=== PATIENT | male | born 1990 | race Two or more races ===

== ENCOUNTER 2020-04-12 13:04 | Emergency (ER) | payer OTHER ==
[~2020-04-12] VITALS: Ht 175.3 cm; Wt 75.0 kg
[2020-04-12 13:09] VITALS: BP 129/79
[2020-04-12 14:09] LABS: COVID AG,FIA SOURCE NASOPHARYNGEAL
== END 2020-04-12 14:13 | disposition home or self-care (01) ==
LOC: EMS 13:04
DX: R07.0 Pain in throat (principal); Z20.828 Contact with and (suspected) exposure to other viral communicable diseases
CPT/HCPCS: 87426; 99283; C9803; U0003